=== PATIENT | female | born 1995 | race Caucasian/White ===

== ENCOUNTER 2018-01-24 15:12 | Emergency (ER) | payer OTHER ==
[2018-01-24 16:24] VITALS: BP 120/77
--- NOTE | 2018-01-24 16:37 | UC ---
Eye Complaint HPI - HPI Summary HPI Summary: Patient has increased redness and pain below the right eye, some clear drainange and irritation of the sclera noted, history of periorbital cellulitis - History of Current Complaint Chief Complaint: UCEye Stated Complaint: SKIN CONCERN Time Seen by Provider: 01/24/18 16:18 Hx Obtained From: Patient Hx Last Menstrual Period: 01/22/18 ?: No Onset/Duration: Sudden Onset, Lasting Days - 2 Timing: Constant Severity Initially: Moderate Severity Currently: Moderate Pain Intensity: 5 Location of Injury: Eye Lid (lower), Periorbital, Sclera Character: Sharp Aggravating Factor(s): Nothing Alleviating Factor(s): Nothing Associated Signs And Symptoms: Positive: Drainage (Clear), Swelling - Allergies/Home Medications Allergies/Adverse Reactions: Allergies Allergy/AdvReac Type Severity Reaction Status Date / Time No Known Allergies Allergy Verified 01/24/18 16:24 PMH/Surg Hx/FS Hx/Imm Hx Previously Healthy: Yes - Surgical History Surgical History: Yes Surgery Procedure, Year, and Place: ACL. D & C - Family History Known Family History: Positive: Hypertension - Social History Alcohol Use: Rare Substance Use Type: None Smoking Status (MU): Heavy Every Day Tobacco Smoker Household Exposure Type: Cigarettes Review of Systems All Other Systems Reviewed And Are Negative: Yes Constitutional: Positive: Negative Skin: Positive: Other - erythema Eyes: Positive: Drainage, Eye Redness Respiratory: Positive: Negative Cardiovascular: Positive: Negative Gastrointestinal: Positive: Negative Genitourinary: Positive: Negative Motor: Positive: Negative Neurovascular: Positive: Negative Musculoskeletal: Positive: Negative Neurological: Positive: Negative Psychological: Positive: Negative Is Patient Immunocompromised?: No Physical Exam Triage Information Reviewed: Yes Appearance: Well-Nourished, Ill-Appearing, Pain Distress Vital Signs: Initial Vital Signs Temp 98.7 F 01/24/18 16:19 Pulse 104 01/24/18 16:19 Resp 16 01/24/18 16:19 BP 120/77 01/24/18 16:19 Pulse Ox 100 01/24/18 16:19 Vital Signs Reviewed: Yes Eyes: Positive: Conjunctiva Inflamed, Discharge - clear, Other: - lower lid swelling and erythema ENT Exam: Normal ENT: Positive: Pharynx normal, TMs normal Dental Exam: Normal Neck exam: Normal Cardiovascular Exam: Normal Cardiovascular: Positive: RRR, No Murmur, Pulses Normal Abdominal Exam: Normal Musculoskeletal Exam: Normal Neurological Exam: Normal Psychological Exam: Normal Skin: Positive: Other - erythema under the right eye Eye Complaint Course/Dx - Course Course Of Treatment: hx obtained, exam performed ,meds reviewed, treated for periorbital cellulitis - Differential Dx/Diagnosis Differential Diagnosis/HQI/PQRI: Conjunctivitis, Periorbital Cellulitis Provider Diagnoses: right periorbital cellultis Discharge - Sign-Out/Discharge Documenting (check all that apply): Patient Departure All imaging exams completed and their final reports reviewed: No Studies - Discharge Plan Condition: Stable Disposition: HOME Prescriptions: Sulfamethox/Trimethoprim DS* [Bactrim DS 800/160 TAB*] 1 tab PO BID #14 tab Patient Education Materials: Periorbital Cellulitis in Adults (ED) Forms: *Work Release Referrals: No Primary Care Phys,NOPCP [Primary Care Provider] - Additional Instructions: 1. take the medication as prescribed. 2 Warm compresses to the eye, multiple times a day - Billing Disposition and Condition Condition: STABLE Disposition: Home
== END 2018-01-24 16:57 | disposition home or self-care (01) ==
LOC: UCCORT 15:12
DX: L03.213 Periorbital cellulitis (principal); F17.210 Nicotine dependence, cigarettes, uncomplicated
CPT/HCPCS: 99202; G0463

== ENCOUNTER → 2018-04-28 19:08 | Emergency (ER) | payer OTHER ==
[2018-04-28 20:59] VITALS: BP 129/86
[2018-04-28 21:16] LABS: Influenza A Molecular NEGATIVE (Negative); Influenza B Molecular NEGATIVE (Negative)
--- NOTE | 2018-04-28 21:41 | UC ---
FLU HPI - HPI Summary HPI Summary: 23-year-old female presents with onset of nasal congestion, clear nasal discharge, sore throar, chills, and body aches today. Denies fever, ear pain, dysphagia, cough, chest pain, shortness of breath, abdominal pain, nausea, vomiting, or diarrhea. - History of Current Complaint Chief Complaint: UCGeneralIllness Stated Complaint: SORE THROAT,BODY ACHES,HEADACHE Time Seen by Provider: 04/28/18 21:00 Hx Obtained From: Patient Hx Last Menstrual Period: [id number] Pain Intensity: 0 - Allergy/Home Medications Allergies/Adverse Reactions: Allergies Allergy/AdvReac Type Severity Reaction Status Date / Time No Known Allergies Allergy Verified 04/28/18 20:59 Home Medications: Home Medications Aspirin/Acetaminophen/Caffeine [Excedrin Migraine Caplet] 1 each PO DAILY PRN [History Confirmed 04/28/18] PMH/Surg Hx/FS Hx/Imm Hx Previously Healthy: Yes - Denies significant PMH - Surgical History Surgical History: Yes Surgery Procedure, Year, and Place: ACL. D & C - Family History Known Family History: Positive: Hypertension - Social History Occupation: Employed Full-time Lives: With Family Alcohol Use: None Substance Use Type: None Smoking Status (MU): Light Every Day Tobacco Smoker Household Exposure Type: Cigarettes Review of Systems All Other Systems Reviewed And Are Negative: Yes Constitutional: Negative: Fever, Chills Skin: Negative: Rash Eyes: Negative: Drainage, Eye Redness ENT: Positive: Sore Throat, Nasal Discharge, Sinus Congestion. Negative: Ear Ache, Sinus Pain/Tenderness Respiratory: Negative: Shortness Of Breath, Cough Cardiovascular: Negative: Palpitations, Chest Pain Gastrointestinal: Negative: Abdominal Pain, Vomiting, Diarrhea, Nausea Genitourinary: Positive: Negative Musculoskeletal: Positive: Myalgia Neurological: Positive: Negative Is Patient Immunocompromised?: No Physical Exam - Summary Physical Exam Summary: GENERAL APPEARANCE: Well developed, well nourished, alert and cooperative, and appears to be in no acute distress. EYES: Conjunctiva clear. No drainage. Vision is grossly intact. EARS: External auditory canals and tympanic membranes clear, hearing grossly intact. NOSE: Mild nasal congestion with clear nasal discharge. THROAT: Mild pharyngeal erythema. No tonsilar inflammation, swelling, exudate, or lesions. Uvula midline. Oral cavity normal. Teeth and gingiva in good general condition. NECK: Neck supple, non-tender without lymphadenopathy. CARDIAC: Normal S1 and S2. No S3, S4 or murmurs. Rhythm is regular. There is no peripheral edema, cyanosis or pallor. Extremities are warm and well perfused. Capillary refill is less than 2 seconds. Peripheral pulses intact. LUNGS: Clear to auscultation without rales, rhonchi, wheezing or diminished breath sounds. ABDOMEN: Positive bowel sounds. Soft, nondistended, nontender. No guarding or rebound. No masses or hepatosplenomegally. MUSKULOSKELETAL: ROM intact to all extremities. No joint erythema or tenderness. Normal muscular development. Normal gait. SKIN: Skin normal color, texture and turgor with no lesions or eruptions. Triage Information Reviewed: Yes Vital Signs: Initial Vital Signs Temp 98.5 F 04/28/18 20:55 Pulse 114 04/28/18 20:55 Resp 16 04/28/18 20:55 BP 129/86 04/28/18 20:55 Pulse Ox 99 04/28/18 20:55 Vital Signs Reviewed: Yes Diagnostics - Laboratory Diagnostic Studies Completed/Ordered: Rapid flu negative. Flu Course/Dx - Course Course Of Treatment: 23-year-old female presents with onset of nasal congestion , clear nasal discharge, sore throar, chills, and body aches today. Denies fever, ear pain, dysphagia, cough, chest pain, shortness of breath, abdominal pain, nausea, vomiting, or diarrhea. Afebrile. Vital signs stable. Exam reveals a young adult female in no acute distress with mild nasal congestion, clear nasal discharge, mild pharyngeal erythema without tonsillar swelling or exudate, no cervical lymphadenopathy, clear bilateral breath sounds, and otherwise unremarkable exam. Rapid flu negative. Recommending symptomatic treatment for a viral upper respiratory infection. She is to follow-up with her primary care provider in 7 days if symptoms do not improve. Anticipatory guidance and warning symptoms reviewed with the patient. Verbalizes understanding and agrees with plan of care. - Differential Dx/Diagnosis Differential Diagnosis/HQI/PQRI: Bronchitis, Influenza, Pneumonia, Upper Respiratory Infection, Other - URI Provider Diagnosis: Viral upper respiratory infection Discharge - Sign-Out/Discharge Documenting (check all that apply): Patient Departure All imaging exams completed and their final reports reviewed: No Studies - Discharge Plan Condition: Stable Disposition: HOME Patient Education Materials: Upper Respiratory Infection (ED) Referrals: No Primary Care Phys,NOPCP [Primary Care Provider] - Additional Instructions: Your history and exam are consistent with a viral upper respiratory infection. Viral infections do not respond to antibiotics and are limited to the treatment of symptoms. Viral infections typically run their course in 7-10 days. Drink plenty of fluids to avoid dehydration especially if you are running any fever. Use a saline rinse kit such as Neti Pot or NeilMed at least twice a day to help thin secretions and promote drainage of the sinuses. Use over the counter Sudafed according to directions for congestion. Take over the counter acetaminophen (Tylenol) or ibuprofen (Advil, Motrin) according to directions as needed for pain or fever. Use salt water gargles several times a day if you have a sore throat. You may also use Chloraseptic spray or Cepacol lonzenges according to directions which contain a numbing medication and can provide some temporary relief from your sore throat. Return here or follow up with your primary care provider in 7 days if symptoms persist. Seek immediate medical attention in the emergency room if you have fever greater than 100.5 F despite taking acetaminophen or ibuprofen, have chest pain , difficulty breathing, are unable to swallow, or have any worsening of symptoms. - Billing Disposition and Condition Condition: STABLE Disposition: Home - Attestation Statements Provider Attestation: Per institutional requirements, I have reviewed the chart, however, I was not consulted specifically or made aware of this patient by the midlevel provider. I did not personally evaluate, interact with , or disposition this patient.
== END | disposition home or self-care (01) ==
LOC: UCCORT 19:08
DX: J06.9 Acute upper respiratory infection, unspecified (principal); F17.200 Nicotine dependence, unspecified, uncomplicated
CPT/HCPCS: 99211; G0463

== ENCOUNTER 2018-06-16 10:45 | Emergency (ER) | payer OTHER ==
[2018-06-16 11:37] VITALS: BP 102/58
--- NOTE | 2018-06-16 11:49 | UC ---
Throat Pain/Nasal Bernardo HPI - HPI Summary HPI Summary: sore throat x 2 days nasal congestion , pnd, cough no fever, no chills , no body aches - History of Current Complaint Chief Complaint: UCRespiratory Stated Complaint: THROAT Time Seen by Provider: 06/16/18 11:45 Hx Obtained From: Patient Hx Last Menstrual Period: "last mid-month" ?: No Onset/Duration: Gradual Onset, Lasting Days - 2, Still Present Severity: Moderate Pain Intensity: 3 Cough: Nonproductive Associated Signs & Symptoms: Positive: Nasal Discharge. Negative: Wheezing, Hoarseness, Sinus Discomfort, Fever, Vomiting, Rash - Allergies/Home Medications Allergies/Adverse Reactions: Allergies Allergy/AdvReac Type Severity Reaction Status Date / Time No Known Allergies Allergy Verified 06/16/18 11:34 Home Medications: Home Medications Migraine Med 80 mg QPM 06/16/18 [History Confirmed 06/16/18] PMH/Surg Hx/FS Hx/Imm Hx Previously Healthy: Yes - Surgical History Surgical History: Yes Surgery Procedure, Year, and Place: ACL. D & C - Family History Known Family History: Positive: Hypertension - Social History Alcohol Use: None Substance Use Type: None Smoking Status (MU): Heavy Every Day Tobacco Smoker Type: Cigarettes Amount Used/How Often: 1/2 PPD Length of Time of Smoking/Using Tobacco: 10 years Household Exposure Type: Cigarettes Review of Systems All Other Systems Reviewed And Are Negative: Yes Constitutional: Positive: Negative Skin: Positive: Negative Eyes: Positive: Negative ENT: Positive: Sore Throat, Nasal Discharge Respiratory: Positive: Cough Cardiovascular: Positive: Negative Is Patient Immunocompromised?: No Physical Exam Triage Information Reviewed: Yes Appearance: Well-Appearing, No Pain Distress, Well-Nourished Vital Signs: Initial Vital Signs Temp 98.1 F 06/16/18 11:34 Pulse 83 06/16/18 11:34 Resp 16 06/16/18 11:34 BP 102/58 06/16/18 11:34 Pulse Ox 99 06/16/18 11:34 Vital Signs Reviewed: Yes Eye Exam: Normal Eyes: Positive: Conjunctiva Clear ENT: Positive: Normal ENT inspection, Hearing grossly normal, Pharyngeal erythema, Nasal congestion, TMs normal. Negative: Nasal drainage, TM bulging, TM dull, TM red, Tonsillar swelling, Tonsillar exudate Neck: Positive: Supple, Nontender, No Lymphadenopathy Respiratory: Positive: Chest non-tender, Lungs clear, Normal breath sounds Cardiovascular: Positive: RRR, No Murmur, Pulses Normal Skin Exam: Normal Throat Pain/Nasal Course/Dx - Differential Dx/Diagnosis Provider Diagnosis: Pharyngitis Discharge - Sign-Out/Discharge Documenting (check all that apply): Patient Departure All imaging exams completed and their final reports reviewed: No Studies - Discharge Plan Condition: Stable Disposition: HOME Patient Education Materials: Pharyngitis (ED) Referrals: No Primary Care Phys,NOPCP [Primary Care Provider] - If Needed Additional Instructions: negative rapid strep viral pharyngitis no need for antibiotics cont. with rest, fluid, take Ibuprofen as needed for pain and fever follow up as needed - Billing Disposition and Condition Condition: STABLE Disposition: Home
== END 2018-06-16 11:55 | disposition home or self-care (01) ==
LOC: UCCORT 10:45
DX: J02.9 Acute pharyngitis, unspecified (principal); R09.81 Nasal congestion; R05 Cough; F17.210 Nicotine dependence, cigarettes, uncomplicated
CPT/HCPCS: 87651; 99211; G0463

== ENCOUNTER 2018-10-20 14:11 | Emergency (ER) | payer OTHER ==
[2018-10-20 14:43] VITALS: BP 131/75
--- NOTE | 2018-10-20 15:08 | UC ---
Headache HPI - HPI Summary HPI Summary: per triage, "Migraine" headache for one day with sensativity to light, sounds, smells and nausea without vomiting for one day. Tried Excedrin Migraine without improvment. Gets a monthly migraine preventative injection. New patient appointment at [facility] in [place] at the end of this month. Neurologist Sebastián ( [place], [place]). Frustrated that she has tried multiple medications with improvement in symptoms in four years. When asked, patient stated she normally sits in a dark room and waits it out. When asked if she's gone to a UC or ED, they have given her "Dilaudid or something for the pain and it knocks me right out." PT DENIES THIS BEING AN ABRUPT OR WORST HEADACHE. SHE HAS HAD NO FEVER OR INJURY. SHE HAS NO CURRENT ILLNESS. SHE NOTES THAT SOMETIMES HER ARM WILL SHAKE OR HER WHOLE BODY WILL SHAKE WITH HER HEADACHES. SHE HAS HAD CT AND MRI. SHE DENIES FMH MIGRAINES AND ANEURYSMS. SHE IS FRUSTRATED BECAUSE THE MIGRAINES ARE BECOMING MORE FREQUENT AND INTENSE. PT WOULD LIKE HER BS CHECKED TO ENSURE THIS IS NOT AN ISSUE BECAUSE SHE HAS A FMH OF DIABETES. PT DENIES FOCAL NUMBNESS AND WEAKNESS. - History Of Current Complaint Chief Complaint: UCHeadache Stated Complaint: MIGRAINE Time Seen by Provider: 10/20/18 14:53 Hx Obtained From: Patient Hx Last Menstrual Period: 10/16/18 Onset/Duration: Gradual Onset Pain Intensity: 10 Timing: Constant Character: Sharp Location of Headache: Diffuse Allevating Factor(s): Nothing - Allergies/Home Medications Allergies/Adverse Reactions: Allergies Allergy/AdvReac Type Severity Reaction Status Date / Time No Known Allergies Allergy Verified 10/20/18 14:37 Home Medications: Home Medications Aspirin/Acetaminophen/Caffeine [Excedrin Migraine Caplet] 2 each PO Q12H PRN [History Confirmed 10/20/18] Erenumab-Aooe [Aimovig Autoinjector] 120 mg SQ MONTHLY 10/20/18 [History Confirmed 10/20/18] PMH/Surg Hx/FS Hx/Imm Hx Neurological History: Migraine - Surgical History Surgical History: Yes Surgery Procedure, Year, and Place: ACL. D & C - Family History Known Family History: Positive: Hypertension, Diabetes - Social History Occupation: Employed Full-time Alcohol Use: None Substance Use Type: None Smoking Status (MU): Light Every Day Tobacco Smoker Type: Cigarettes Amount Used/How Often: <1/2 PPD Length of Time of Smoking/Using Tobacco: Since Age 15 Household Exposure Type: Cigarettes Review of Systems All Other Systems Reviewed And Are Negative: Yes Constitutional: Negative: Fever, Chills Eyes: Positive: Photophobia. Negative: Blurred Vision, Diplopia, Eye Redness ENT: Negative: Sore Throat, Ear Ache, Sinus Congestion Respiratory: Negative: Shortness Of Breath, Cough Cardiovascular: Negative: Palpitations, Chest Pain Gastrointestinal: Positive: Vomiting, Nausea. Negative: Abdominal Pain, Diarrhea Musculoskeletal: Negative: Decreased ROM Neurological: Positive: Headache. Negative: Weakness, Paresthesia, Numbness Physical Exam Triage Information Reviewed: Yes Appearance: Well-Appearing Vital Signs: Initial Vital Signs Temp 98.7 F 10/20/18 14:34 Pulse 90 10/20/18 14:34 Resp 16 10/20/18 14:34 BP 131/75 10/20/18 14:34 Pulse Ox 99 10/20/18 14:34 Vital Signs Reviewed: Yes Eyes: Positive: Conjunctiva Clear, Other: - PERRL, EOMI. ENT: Positive: Pharynx normal, TMs normal. Negative: Nasal congestion, Nasal drainage Neck: Positive: Supple, Nontender, No Lymphadenopathy. Negative: Nuchal Rigidity Respiratory: Positive: Lungs clear, Normal breath sounds, No respiratory distress Cardiovascular: Positive: RRR, No Murmur Abdomen Description: Positive: Nontender, No Organomegaly, Soft Bowel Sounds: Positive: Present Musculoskeletal: Positive: ROM Intact Neurological: Positive: Other: - A&Ox3. CN 2-12 intact. negative rhomberg and pronator drift. 5/5 strength, 2+ reflexes and sensation intact x4. heal toe walks and performs rapid alternating moves with ease. Steady gait. No tremor. Psychological: Positive: Age Appropriate Behavior Skin Exam: Normal Diagnostics - Laboratory Lab Results: FS [id number]. Headache Course/Dx - Differential Dx/Diagnosis Differential Diagnosis/HQI/PQRI: Other - neuro exam is reassuring. no fever, injury or acute illness. not an abrupt or worst headache. will tx with toradol and zofran. pt would like d/c after the tx. pt interested in second opinion from neurology thus will provide her with a referal Provider Diagnosis: Migraine Discharge - Sign-Out/Discharge Documenting (check all that apply): Patient Departure All imaging exams completed and their final reports reviewed: No Studies - Discharge Plan Condition: Stable Disposition: HOME Patient Education Materials: Migraine Headache (ED) Referrals: [facility] [Provider Group] - As Soon As Possible Additional Instructions: GO TO THE ER FOR ANY CHANGES OR WORSENING. FOLLOW UP WITH ALAN SCHEDULED. - Billing Disposition and Condition Condition: STABLE Disposition: Home
[2018-10-20] MEDS ORDERED: Ondansetron ODT TAB* 4 MG PO ONE (15:25)
[2018-10-20] MEDS ORDERED: Ketorolac *IM* INJ* 60 MG/2 ML VIAL IM ONE (15:25)
== END 2018-10-20 15:46 | disposition home or self-care (01) ==
LOC: UCCORT 14:11
DX: G43.909 Migraine, unspecified, not intractable, without status migrainosus (principal); F17.210 Nicotine dependence, cigarettes, uncomplicated
CPT/HCPCS: 96372; 99212; A9270-GY; G0463; J1885

== ENCOUNTER 2018-12-24 14:35 | Emergency (ER) | payer OTHER ==
--- OUTSIDE RECORDS SUMMARY | 2018-12-24 14:53 | XMS REPORT | Summary of Care ---
:1995 Author Organization [facility] Address [address] [facility] [place] [address] Care Team Providers Name Role Phone Betzy Islas Primary Care Provider Reason for Visit Reason Comments Neck Pain Encounter Details Date Type Department Care Team Description 10/28/2018 Office Visit [facility] Jose Conteh Cervical strain, initial encounter (Primary Dx); [address] [facility] Thoracic myofascial strain, initial encounter; [place] [address] [address] Migraine without aura and without status migrainosus, not intractable [phone] [place] [address] Allergies No Known Allergiesdocumented as of this encounter (statuses as of 10/28/2018) Medications Medication Sig Dispensed Refills Start Date End Date Status MV-Min-Fe Take by mouth. 0 Active Fum-FA-DHA ( 1 PO) documented as of this encounter (statuses as of 10/28/2018) Active Problems Problem Noted Date Normal intrauterine , antepartum 11/06/2017 Hx of preeclampsia, prior , currently 11/06/2017 Overview: 11/06/17: Will start baby aspirin. SS Migraine without aura 11/06/2017 Overview: 11/06/17: Using tylenol and coffee. SS Comments Yes documented as of this encounter (statuses as of 10/28/2018) Resolved Problems Problem Noted Date Resolved Date Incomplete 04/19/2014 05/02/2014 Asthma 10/19/2013 11/06/2017 documented as of this encounter (statuses as of 10/28/2018) Social History Tobacco Use Types Packs/Day Years Used Date Former Smoker Cigarettes 0.25 Smokeless Tobacco: Never Used Alcohol Use Drinks/Week oz/Week Comments No Comments Yes Sex Assigned at Date Recorded Not on file Job Start Date Occupation Industry Not on file Not on file Not on file Travel History Travel Start Travel End No recent travel history available. documented as of this encounter Last Filed Vital Signs Not on filedocumented in this encounter Progress Notes Jose Conteh DC - 10/28/2018 3:15 PM EDT PATIENT: Kari Schultz : 1995 DATE OF SERVICE: 10/28/2018 REFERRING PRACTITIONER: Hao PRIMARY CARE PROVIDER: Betzy Islas Chief Complaint Patient presents with Neck Pain HISTORY OF PRESENT ILLNESS: Kari Schultz is a 23-y.o. female who presents for a new visit for neck pain and headache. Distribution is focal. Duration / onset: several years ago Mechanism of injury: Insidious after the of her child History of trauma: There has been no recent cervical trauma Onset - other information: Recent symptom deterioration prompted this consultation. Frequency: continuous Quality: sharp Severity: severe Timing: all day. Aggravating factors: twisting, rotation, light Alleviating factors: nothing, Associated signs and symptoms: valsalva maneuvers do not influence the low back pain No lower extremity radiation No lower extremity paresthesias No upper extremity radiation No upper extremity paresthesias No lower limb weakness. No upper limb weakness. Bowel and bladder control: bowel and bladder control are normal. Successful treatments to date: rest Unsuccessful treatments to date: oral medications Consultations to date: ER, PCP. Neurologist Imaging procedures: Brain MRI Red flag screen: There has been no history of cancer, unexplained weight loss, night sweats or night pain. Outcomes questionnaires: Analog Pain Scale result: 08/17 NDI score: Oswestry score: Past Medical History: Diagnosis Date Asthma Past Surgical History: Procedure Laterality Date CURETTAGE SUCTION N/A 04/19/2014 Procedure: CURETTAGE SUCTION; Surgeon: Gabriel Vallejo MD; Location: [facility] MAIN OR CT FEMUR/KNEE SURG UNLISTED Left 05/2013 acl surgery UNLISTED PROCEDURE,MUSCULOSKELE left ACL repair knee Family History Problem Relation Age of Onset Cancer Mother lung ca. Cancer Maternal Grandfather liver, lung and brain CA Hypertension Father Diabetes Maternal Grandmother Anesth Problems No family history Arthritis No family history Clotting Disorder No family history Heart Disease No family history Kidney Disease No family history Thyroid Disease No family history Current Outpatient Medications Medication Sig MV-Min-Fe Fum-FA-DHA ( 1 PO) Take by mouth. No current facility-administered medications for this visit. No Known Allergies Social History Socioeconomic History Marital status: Single Spouse name: Not on file Number of children: Not on file Years of education: Not on file Highest education level: Not on file Occupational History Not on file Social Needs Financial resource strain: Not on file Food insecurity: Worry: Not on file Inability: Not on file Transportation needs: Medical: Not on file Non-medical: Not on file Tobacco Use Smoking status: Former Smoker Packs/day: 0.25 Types: Cigarettes Smokeless tobacco: Never Used Substance and Sexual Activity Alcohol use: No Drug use: No Sexual activity: Yes Partners: Male Lifestyle Physical activity: Days per week: Not on file Minutes per session: Not on file Stress: Not on file Relationships Social connections: Talks on phone: Not on file Gets together: Not on file Attends oriental orthodox service: Not on file Active member of club or organization: Not on file Attends meetings of clubs or organizations: Not on file Relationship status: Not on file Intimate partner violence: Fear of current or ex partner: Not on file Emotionally abused: Not on file Physically abused: Not on file Forced sexual activity: Not on file Other Topics Concern Not on file Social History Narrative Not on file REVIEW OF SYSTEMS: All remaining review of systems was negative. PHYSICAL EXAMINATION: There were no vitals filed for this visit. There is no height or weight on file to calculate BMI. Neurological Exam Reflexes: (All normal) The biceps, triceps, brachioradialis, Achilles and quadriceps reflexes were 2/5 and symmetrical, Neurological Exam Motor: (All lower limb normal) Motor strength at the extensor hallucis longus, tibialis anterior, peroneus longus, quadriceps and hamstring muscles was 5/5 and symmetrical, Regions of tenderness: Sub occipital muscle, very tender Vascular Peripheral pulses at the wrist are present bilaterally and equal. Peripheral pulses at the ankle are present bilaterally and equal. Intersegmental Motion Evaluation / chiropractic subluxation Spinal joint dysfunction/ chiropractic subluxation Acute: Cervical: Occ/C1, R-C1/2, L-C1/2, R-C2/3, L-C2/3 Thoracic: R-T1/2, L-T1/2, R-T2/3, L-T2/3 Posture Forward head carriage and rounded shoulder posture noted, and the shoulders are internally rotated. Orthopedics Tests Palpation of the musculature in the cervical spine and sub occipital region was positive for pain and reproduced the patient's complaints neck pain. Cervical compression testing was negative for upper extremity symptoms using compression with combined extension, lateral bending and rotation. Thoracic outlet testing reproduced the patients complaints of tingling, and is likely mediated by tight pectoral musculature Right . Thoracic spine extension reproduced the patient's complaints of cervical thoracic junction stiffness. IMPRESSION: ICD-9-CM ICD-10-CM 1. Cervical strain, initial encounter 847.0 S16.1XXA 2. Thoracic myofascial strain, initial encounter 847.1 S29.019A 3. Migraine without aura and without status migrainosus, not intractable 346.10 G43.009 Response to care: Initial vist Plan: History, Exam, Report of Findings, Manipulate areas of inter-segmental dysfunction as noted inthe section titled intersegmental motion evaluation above , instruct in exercisesfor the purpose of neuromuscular reeducation to improve strength and range of motion. . Manipulation: Spinal level(s): Spinal joint dysfunction/ chiropractic subluxation Acute: Cervical: Occ/C1, R-C1/2, L-C1/2, R-C2/3, L-C2/3 Thoracic: R-T1/2, L-T1/2, R-T2/3, L- Goal: Reduce intensity, frequency and duration of headaches Recommended Level of Care: Follow up: Schedule follow-up here in 3 week(s).. Patient cautioned against bed rest, and encouraged to remain active. No contraindications to manipulation were identified documented in this encounter Plan of Treatment Date Type Specialty Care Team Description 11/02/2018 Office Visit [facility] Denisha Murcia NP [address] [place] [address] [phone] 11/18/2018 Office Visit Neurology Jose Conteh DC [address] [place] [address] [phone] Health Maintenance Due Date Last Done Comments HPV IMMUNIZATION SERIES (1 - 2009 Female 3-dose series) DEPRESSION SCREENING 10/23/2018 10/23/2017, 10/23/2017 CHLAMYDIA SCREENING 11/06/2018 11/06/2017, 08/25/2014 INFLUENZA VACCINE (#1) 2018 PAP SMEAR 11/06/2020 11/06/2017, 08/25/2014 HIV SCREENING Completed 11/06/2017 MENINGOCOCCAL VACCINE IMM Aged Out No longer eligible based on patient's age to complete this topic PNEUMOCOCCAL 0-64 YRS Aged Out No longer eligible based on patient's age to complete this topic documented as of this encounter Results Not on filedocumented in this encounter Visit Diagnoses Diagnosis Cervical strain, initial encounter - Primary Thoracic myofascial strain, initial encounter Migraine without aura and without status migrainosus, not intractable Migraine without aura, without mention of intractable migraine without mention of status migrainosus documented in this encounter documented as of this encounter
[2018-12-24 15:20] VITALS: BP 117/67
--- NOTE | 2018-12-24 16:12 | UC ---
Eye Complaint HPI - HPI Summary HPI Summary: Patient is a 23-year-old female presenting with with complaints of left eye burning and possible pinkeye since yesterday. Patient states she gets pinkeye but "in her bloodstream." She states she was hospitalized for orbital cellulitis as a child. States she had a similar episode 2 years ago though and it was treated with antibiotic eyedrops and ointment for the surrounding skin. She also notes mild discomfort with certain movements of her eyes. Patient denies changes in vision. Denies discharge but notes tearing. Denies fevers and chills. Denies nausea and vomiting. Patient denies contact lens use. - History of Current Complaint Chief Complaint: UCEye Stated Complaint: LEFT EYE COMPLAINT Hx Obtained From: Patient Hx Last Menstrual Period: 10/16/18 Onset/Duration: Sudden Onset Severity Initially: Moderate Severity Currently: Moderate Pain Intensity: 4 Pain Scale Used: 0-10 Numeric - Allergies/Home Medications Allergies/Adverse Reactions: Allergies Allergy/AdvReac Type Severity Reaction Status Date / Time No Known Allergies Allergy Verified 12/24/18 15:20 PMH/Surg Hx/FS Hx/Imm Hx Previously Healthy: Yes - Surgical History Surgical History: Yes Surgery Procedure, Year, and Place: ACL. D & C - Family History Known Family History: Positive: Hypertension, Diabetes - Social History Alcohol Use: None Substance Use Type: None Smoking Status (MU): Light Every Day Tobacco Smoker Type: Cigarettes Amount Used/How Often: <1/2 PPD Length of Time of Smoking/Using Tobacco: Since Age 15 Household Exposure Type: Cigarettes Review of Systems All Other Systems Reviewed And Are Negative: Yes Constitutional: Positive: Negative. Negative: Fever, Chills Skin: Positive: Other - Erythema around eye Eyes: Negative: Blurred Vision, Diplopia ENT: Positive: Negative Respiratory: Positive: Negative Cardiovascular: Positive: Negative Neurological: Negative: Headache Physical Exam Triage Information Reviewed: Yes Appearance: Well-Appearing, No Pain Distress, Well-Nourished Vital Signs: Initial Vital Signs Temp 98.4 F 12/24/18 15:15 Pulse 88 12/24/18 15:15 Resp 16 12/24/18 15:15 BP 117/67 12/24/18 15:15 Pulse Ox 100 12/24/18 15:15 Vital Signs Reviewed: Yes Eyes: Positive: Other: - mild inferolateral injection of sclera noted in left eye. PERRLA. EOM intact. Negative: Conjunctiva Inflamed, Discharge ENT: Positive: Hearing grossly normal Neck: Positive: Supple Respiratory Exam: Normal Respiratory: Positive: Lungs clear, Normal breath sounds, No respiratory distress Cardiovascular Exam: Normal Cardiovascular: Positive: RRR Neurological: Positive: Alert Psychological: Positive: Age Appropriate Behavior Skin: Positive: Other - area of erythema and warmth noted extending below left eye Eye Complaint Course/Dx - Course Course Of Treatment: Discussed with patient diagnosis of cellulitis. I am treating her with Keflex. Instructed her to call her primary care physician as soon as possible and follow-up tomorrow for further evaluation. She was also given a referral for ophthalmology including Dr. Maradiaga that she requested. Instructed the patient to follow-up with ophthalmology as soon as possible as well. Instructed her to go to the emergency room if she experiences fever, chills, nausea, vomiting, or increased pain. Patient voiced understanding and agreed to treatment plan. - Differential Dx/Diagnosis Provider Diagnosis: Cellulitis of left lower eyelid Discharge ED - Sign-Out/Discharge Documenting (check all that apply): Patient Departure All imaging exams completed and their final reports reviewed: No Studies - Discharge Plan Condition: Stable Disposition: HOME Prescriptions: Cephalexin CAP* [Keflex CAP*] 500 mg PO TID #21 cap Patient Education Materials: Cellulitis (ED) Forms: *Work Release Referrals: Pranav Bee MD [Medical Doctor] - As Soon As Possible Sarah Maradiaga MD [Medical Doctor] - As Soon As Possible Additional Instructions: As discussed, take Keflex as prescribed for the treatment of your cellulitis. It is very important that you call and make an appointment with your primary care physician for tomorrow for further evaluation. It is also important that you call one of the ophthalmology referrals as listed below as soon as possible for further evaluation. Go to the emergency room if you experience fever, chills, blurry vision, nausea , or vomiting. I also saw pt in conjucntion w/ Pinky and agree w/ A/P. left cheek cellulitis. treat w/ abx. stresse dto go to the ER with worsenings x, fevers. chills or eye sx. - Billing Disposition and Condition Condition: STABLE Disposition: Home
== END 2018-12-24 16:27 | disposition home or self-care (01) ==
LOC: UCCORT 14:35
DX: H00.035 Abscess of left lower eyelid (principal); F17.210 Nicotine dependence, cigarettes, uncomplicated
CPT/HCPCS: 99212; G0463

== ENCOUNTER 2019-02-25 21:45 | Emergency (ER) | payer OTHER ==
[2019-02-25 21:53] VITALS: BP 126/82
[2019-02-25] MEDS ORDERED: Polymyx/Trimethoprim OPTH* 10 ML BTL RIGHT EYE ONE (21:57)
--- NOTE | 2019-02-25 22:05 | UC ---
UC General HPI - HPI Summary HPI Summary: Pt presents c/o ST, fever, chills, body aches X 3-4 days, right eye redness and discharge that began this morning and pt is requesting test. - History of Current Complaint Chief Complaint: UCGeneralIllness Stated Complaint: EYE COMP/ST Time Seen by Provider: 02/25/19 21:48 Hx Obtained From: Patient Hx Last Menstrual Period: 02/21/19 Onset/Duration: Sudden Onset, Lasting Days, Still Present Timing: Constant Onset Severity: Mild Current Severity: Mild Pain Intensity: 0 Associated Signs & Symptoms: Positive: Fever - Allergy/Home Medications Allergies/Adverse Reactions: Allergies Allergy/AdvReac Type Severity Reaction Status Date / Time No Known Allergies Allergy Verified 02/25/19 21:49 Home Medications: Home Medications NK [No Home Medications Reported] 02/25/19 [History Confirmed 02/25/19] PMH/Surg Hx/FS Hx/Imm Hx Previously Healthy: Yes - Surgical History Surgical History: Yes Surgery Procedure, Year, and Place: ACL. D & C - Family History Known Family History: Positive: Hypertension, Diabetes - Social History Occupation: Employed Full-time Lives: With Family Alcohol Use: None Substance Use Type: None Smoking Status (MU): Light Every Day Tobacco Smoker Type: Cigarettes Amount Used/How Often: <1/2 PPD Length of Time of Smoking/Using Tobacco: Since Age 15 Have You Smoked in the Last Year: Yes Household Exposure Type: Cigarettes Review of Systems All Other Systems Reviewed And Are Negative: Yes Constitutional: Positive: Fever, Chills, Fatigue Skin: Positive: Negative Eyes: Positive: Drainage, Eye Redness ENT: Positive: Sore Throat Respiratory: Positive: Negative Cardiovascular: Positive: Negative Gastrointestinal: Positive: Negative Genitourinary: Positive: Negative Motor: Positive: Negative Neurovascular: Positive: Negative Musculoskeletal: Positive: Negative Neurological: Positive: Negative Psychological: Positive: Negative Is Patient Immunocompromised?: No Physical Exam Triage Information Reviewed: Yes Appearance: Well-Appearing Vital Signs: Initial Vital Signs Temp 98.3 F 02/25/19 21:49 Pulse 98 02/25/19 21:49 Resp 16 02/25/19 21:49 BP 126/82 02/25/19 21:49 Pulse Ox 100 02/25/19 21:49 Vital Signs Reviewed: Yes Eyes: Positive: Conjunctiva Inflamed, Discharge ENT: Positive: Pharyngeal erythema, Tonsillar swelling Dental Exam: Normal Neck exam: Normal Respiratory Exam: Normal Cardiovascular Exam: Normal Musculoskeletal Exam: Normal Neurological Exam: Normal Psychological Exam: Normal Skin Exam: Normal Course/Dx - Course Course Of Treatment: I discussed the rapid strep and urine test results with the pt. She verbalized understanding and agreed to plan of care. - Differential Dx - Multi-Symptom Differential Diagnoses: Other - conjunctivitis - Diagnoses Provider Diagnosis: Conjunctivitis, Sore throat (viral) Discharge ED - Sign-Out/Discharge Documenting (check all that apply): Patient Departure All imaging exams completed and their final reports reviewed: No Studies - Discharge Plan Condition: Stable Disposition: HOME Patient Education Materials: Pharyngitis (ED), Conjunctivitis (ED) Forms: *Work Release Referrals: [facility] [Outside] No Primary Care Phys,NOPCP [Primary Care Provider] - - Billing Disposition and Condition Condition: STABLE Disposition: Home
== END 2019-02-25 22:14 | disposition home or self-care (01) ==
LOC: UCCORT 21:45
DX: J02.9 Acute pharyngitis, unspecified (principal); H10.9 Unspecified conjunctivitis; F17.210 Nicotine dependence, cigarettes, uncomplicated
CPT/HCPCS: 84702; 87651; 99212; G0463